=== PATIENT | female | born 1930 | race Caucasian/White ===

== ENCOUNTER 2016-10-27 10:58 | Outpatient (CLI) | payer MEDICARE, OTHER ==
[2015-05-10 22:43] VITALS: BP 207/80
== END 2016-10-27 11:00 ==
LOC: LAB 10:58
PROVIDERS: ATTEND Family Medicine
DX: E11.9 Type 2 diabetes mellitus without complications (principal)
CPT/HCPCS: 36415; 83036

== ENCOUNTER 2017-02-02 14:18 | Outpatient (CLI) | payer MEDICARE, OTHER ==
[2015-05-10 22:43] VITALS: BP 207/80
== END 2017-02-02 14:20 ==
LOC: LAB 14:18
PROVIDERS: ATTEND Family Medicine
DX: E11.9 Type 2 diabetes mellitus without complications (principal)
CPT/HCPCS: 36415; 82043; 83036

== ENCOUNTER 2017-05-05 13:42 | Outpatient (CLI) | payer MEDICARE, OTHER ==
[2015-05-10 22:43] VITALS: BP 207/80
[2017-05-05 14:32] LABS: eGFR (African) > 60; eGFR (Non-African) > 60
== END 2017-05-05 13:43 ==
LOC: LAB 13:42
PROVIDERS: ATTEND Family Medicine
DX: E11.9 Type 2 diabetes mellitus without complications (principal)
CPT/HCPCS: 36415; 80053; 80061; 83036

== ENCOUNTER 2017-08-19 14:40 | Outpatient (CLI) | payer MEDICARE, OTHER ==
[2015-05-10 22:43] VITALS: BP 207/80
== END 2017-08-19 14:42 ==
LOC: LAB 14:40
PROVIDERS: ATTEND Family Medicine
DX: E11.9 Type 2 diabetes mellitus without complications (principal)
CPT/HCPCS: 36415; 83036

== ENCOUNTER 2017-11-09 10:47 | Outpatient (CLI) | payer MEDICARE, OTHER ==
[2015-05-10 22:43] VITALS: BP 207/80
== END 2017-11-09 10:50 ==
LOC: LABRHC 10:47
PROVIDERS: ATTEND Physician Assistant
DX: R30.0 Dysuria (principal)
CPT/HCPCS: 87086

== ENCOUNTER 2017-12-18 17:02 | Outpatient (CLI) | payer MEDICARE, OTHER ==
[2015-05-10 22:43] VITALS: BP 207/80
== END 2017-12-18 17:05 ==
LOC: LABRHC 17:02
PROVIDERS: ATTEND Physician Assistant
DX: R30.0 Dysuria (principal)
CPT/HCPCS: 87086

== ENCOUNTER 2017-12-28 07:02 | Emergency (ER) | payer MEDICARE, OTHER ==
--- NOTE | 2017-12-28 07:16 | ED Physician Documentation ---
Female Urogenital Problems - HISTORIAN Historian: patient - HPI Stated Complaint: vaginal itching Chief Complaint: Female Urogenital Problems Onset: days ago (1) Severity: mild Location of Pain: other (vaginal itching and burning with urination ) Further Comments: yes (She states over the last month she has had 2 UTI's and antibitotic treatment. She states she stopped the last antibiotic on the 12 of this month. She states yesterday she started itching and frequency. She denies any fever or nausea . No other complaints. She does not check her blood sugars at home.) - Associated Symptoms Urinary Symptoms: frequent urination, discomfort w/ urination, burning w/ urination, urgency w/ urination. denies: blood in urine Discharge: denies: vaginal discharge, vaginal fluid leakage, odorous discharge - ROS CONST: recent illness (UTI ) GI/: denies: nausea, vomiting CVS/RESP: none EYES/ENT: none NEURO/PSYCH: none MS/SKIN/LYMPH: none - PAST HX Past History: other (UTI x 2 ) Other History: diabetes Type 2, hypertension Immunizations: UTD Allergies/Adverse Reactions: Allergies Allergy/AdvReac Type Severity Reaction Status Date / Time levofloxacin AdvReac Mild No Reaction Verified 12/28/17 07:29 tramadol AdvReac Nausea/Vomi Verified 12/28/17 07:29 ting - SOCIAL HX Smoking History: non-smoker Alcohol Use: none Drug Use: none - FAMILY HX Family History: none - VITAL SIGNS Vital Signs: Vital Signs Temp Pulse Resp BP Pulse Ox 207/80 05/10/15 21:30 - REVIEWED ASSESSMENTS Nursing Assessment Reviewed: Yes Vitals Reviewed: Yes Female Urogenital Problems - EXAM General Appearance: no acute distress, alert EENT: eye inspection normal Neck: nml inspection Respiratory: no resp. distress, breath sounds nml CVS: reg rate & rhythm, heart sounds normal, equal pulses Abdomen: soft, non-tender, no organomegaly, no distention Back: non-tender Skin: color nml, no rash, warm,dry Extremities: non-tender, normal range of motion, no evidence of injury, no edema Neuro: oriented X3, CN's nml as tested, motor nml, sensation nml, mood/affect nml, cognition normal Discharge Clincal Impression: Diabetes type 2, uncontrolled Qualifiers: Diabetes mellitus complication status: with hyperglycemia Diabetes mellitus senior living insulin use: without senior living use Qualified Code(s): E11.65 - Type 2 diabetes mellitus with hyperglycemia Referrals: Rakel Bee MD [Primary Care Provider] - 2 Days Additional Instructions: 1. Increase Januvia to 100 mg daily (until Dr Bee appt) 2. Check blood sugars fasting (before eating in morning) and afternoon or if feeling bad 3. Increase fluids 4. Follow up with PCP as soon as possible 5. Diflucan 150 mg today and repeat in 3 days (2 more tabs if needed prior to PCP appt) 6. Return to ER for increasing concerns Condition: Stable Disposition: 01 HOME, SELF-CARE Decision to Admit: NO Date of Decison to Admit: 12/28/17 Decision Time: 07:45
[2017-12-28] MEDS ORDERED: INSULIN REGULAR, HUMAN 100 UNIT/ML 3ML VIAL SQ ONE (07:28)
[2017-12-28 08:15] LABS: APPEARANCE,URINE CLOUDY (CLEAR); COLOR,URINE YELLOW (YELLOW); OCCULT BLOOD,URINE TRACE-INTACT (NEGATIVE); PH URINE 5.5 (5.0 - 8.0); UROBILINOGEN URINE 0.2 Eu (0.2-1.0)
[2017-12-28 08:16] LABS: YEAST,URINE FEW (NEGATIVE)
[2017-12-28 08:18] VITALS: BP 167/84
== END 2017-12-28 07:56 | disposition home or self-care (01) ==
LOC: ED 07:02
DX: E11.65 Type 2 diabetes mellitus with hyperglycemia (principal)
CPT/HCPCS: 81002; J1815; 96372; 99283

== ENCOUNTER 2018-01-07 16:14 | Outpatient (CLI) | payer MEDICARE, OTHER ==
[2018-01-07 16:35] LABS: MEAN CORPUSCULAR HEMOGLOBIN 23.8 pg (28.0-34.0); MEAN CORPUSCULAR VOLUME 81.8 fl (80.0-100.0)
[2018-01-07 16:58] LABS: eGFR (African) > 60; eGFR (Non-African) > 60
== END 2018-01-07 16:15 ==
LOC: LAB 16:14
PROVIDERS: ATTEND Family Medicine
DX: R10.84 Generalized abdominal pain (principal); E11.9 Type 2 diabetes mellitus without complications
CPT/HCPCS: 36415; 80053; 83036; 85027

== ENCOUNTER 2018-01-08 09:56 | Outpatient (CLI) | payer MEDICARE, OTHER ==
--- NOTE | 2018-01-08 19:02 | Diagnostic Imaging Report ---
UZMA JARRETT [facility] [address] [facility] [address] [place], [place]. [address] Report Submission Date: Jan 08, 2018 11:17:29 AM CDT Patient Study Name: BEST CLIFFORD Date: Jan 08, 2018 10:25:23 AM CDT Modality Type: CT\SR Gender: F Description: CT ABD PELVIS W/ CON : 32 Institution: [facility] Physician: UZMA JARRETT Examination: CT Abdomen/pelvis History: CT A/P W/ CONTRAST, ABD PAIN, HYPERGLYCEMIA, WEIGHT LOSS FOR ABOUT 6 MONTHS (Hx) Comparison exams: None available Technique: CT Abdomen/pelvis with IV protocol. Findings: Liver demonstrates mild diffuse low attenuation. No central lesion. Spleen, adrenals, pancreas, kidneys and gallbladder are without gross irregularity. No abnormal enhancement. No gallstone. No suspicious renal calcifications. Ureters are nondilated in their course through the abdomen and pelvis. No central calcifications. Abdominal aorta demonstrates peripheral atherosclerotic disease. No aneurysm. Cardiac silhouette is not enlarged. No pericardial effusion. Dilated/prominent loops of mid abdominal small bowel associated with mucosal thickening and air-fluid levels. Stool within the large bowel limiting sensitivity. No mesenteric inflammatory changes or free fluid. Appendix not visualized. Osseous structures demonstrate degenerative changes. Lung bases demonstrate interstitial prominence. Posterior scarring and atelectasis. No posterior fusion. Left lower lung granuloma. Impression: Prominent small bowel with mucosal thickening and air-fluid levels suggesting diffuse gastroenteritis/acute small bowel process. No overt obstruction. No acute upper abdominal organ inflammatory process. Fatty liver. No gallstone. No suspicious renal calcification or abnormal ureteric dilation. Lung base scarring and interstitial prominence - possible mild congestive edema. No effusion. Electronically signed on Jan 08, 2018 11:17:29 AM CDT by: Oseas MILLER
== END 2018-01-08 09:58 ==
LOC: RAD 09:56
PROVIDERS: ATTEND Family Medicine
DX: R10.84 Generalized abdominal pain (principal); R63.0 Anorexia; R73.9 Hyperglycemia, unspecified
CPT/HCPCS: 74177; Q9967

== ENCOUNTER 2018-03-02 11:54 | Outpatient (CLI) | payer MEDICARE, OTHER ==
[2018-03-02 13:13] LABS: eGFR (African) > 60; eGFR (Non-African) > 60
[2018-03-02 13:14] LABS: BASOPHILS % 0.8 (0.0-1.5); MEAN CORPUSCULAR HEMOGLOBIN 24.7 pg (28.0-34.0); MEAN CORPUSCULAR VOLUME 86.2 fl (80.0-100.0); MONOCYTES % 5.2 % (0.0-11.0); NEUTROPHILS # 2.4 # k/uL (1.4-7.7)
[2018-03-02 22:11] LABS: SERUM IRON 92 ug/dL (37-145)
== END 2018-03-02 11:55 ==
LOC: LAB 11:54
PROVIDERS: ATTEND Family Medicine
DX: D50.9 Iron deficiency anemia, unspecified (principal); I50.31 Acute diastolic (congestive) heart failure
CPT/HCPCS: 36415; 80048; 82728; 83540; 83550; 85025

== ENCOUNTER 2018-03-15 10:49 | Day surgery (SDC) | payer MEDICARE, OTHER ==
[~2018-03-15 10:49] MED LIST: LACTATED RINGERS 1,000 ML IV.SOLN IV ONE; LIDOCAINE HCL/PF 2% 100 MG/5 ML VIAL IJ ONE; PROPOFOL 200 MG/20 ML VIAL IV ONE
--- NOTE | 2018-03-19 10:11 | GI Report ---
REFERRING PHYSICIAN: Dr. Rakel Bee CALL OR CONTACT CENTRE TEAM LEADER: Chivo Brown MD PROCEDURE MEDICATION: Propofol as per anesthesia. INDICATIONS: An 87-year-old woman who was apparently recently at [facility] with severe shortness of breath. She was found to be markedly anemic and low iron. She did receive 2 units of blood transfusions and apparently an iron infusion. She has not noted blood in her stools. She has never had her stomach or colon looked at before. 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 She apparently has vascular disease and carotid stenosis in the past and an intracerebral hemorrhage in the past. She is on aspirin. No other anticoagulation. She denies abdominal pain or discomfort or obvious change in bowel habits. PROCEDURE PERFORMED: Endoscopy followed by a colonoscopy. PROCEDURE: An Olympus video endoscope is passed through the esophagus under direct visualization. She has maybe grade A or grade 1 esophagitis at the GE junction. The stomach is entered. She does have diffuse gastritis though, atrophic gastritis. You just touch the wall or when we took a biopsy, it bled freely. No specific lesion otherwise. Duodenal bulb, first and second part of the duodenum, and the villi structures looked normal. The patient tolerated the procedure well. FINDINGS: Atrophic gastritis. It bleeds freely with biopsies. RECOMMENDATIONS: 1. Would follow up biopsy results. 2. We will put her on a PPI like Prilosec or Omeprazole 20 mg before her first meal daily. 3. Avoid any other nonsteroidal's outside of her baby aspirin. cc: Dr. Rakel MILLER
--- NOTE | 2018-03-19 10:17 | GI Report ---
REFERRING PHYSICIAN: Dr. Rakel Bee DENIER CONTROL OPERATOR: Chivo Brown MD PROCEDURE MEDICATION: Propofol as per anesthesia. INDICATIONS: 1. Significant anemia; 2. Iron deficiency. 3. She has never had a colonoscopy. PROCEDURE PERFORMED: Colonoscopy. PROCEDURE: An Olympus video colonoscope was advanced to the rectum and slowly advanced all the way to the cecum. The appendiceal orifice and ileocecal valve looked normal. On slow withdrawal, the colon has a little nonspecific friability but there is no granularity. No ulceration. No obvious polyps, tumors, or bleeding sites. I did not see any AV malformations in the cecum. The prep was fair. We did lavage a couple of areas but where we lavaged, including the base of the cecum, we saw no AV malformations or any other obvious bleeding sites. On retroflexion of the rectum, she was hemorrhoids. Patient tolerated the procedure well. FINDINGS: 1. An atonic redundant. 2. Nonspecific friability but no obvious bleeding site noted. RECOMMENDATIONS: 1. Continue her prior medicines and diet. 2. If bleeding persists, a capsule endoscopy might be a consideration pending the biopsy results from the upper endoscopy. cc: Dr. Rakel MILLER
== END 2018-03-15 10:50 ==
LOC: OPSURG 10:49
PROVIDERS: ATTEND Internal Medicine Gastroenterology
DX: Z12.11 Encounter for screening for malignant neoplasm of colon (principal); D50.9 Iron deficiency anemia, unspecified; K31.89 Other diseases of stomach and duodenum; K29.41 Chronic atrophic gastritis with bleeding
CPT/HCPCS: 88304; J2001; J2704; J7120; 43239; G0121; S1016

== ENCOUNTER 2018-05-03 15:15 | Outpatient (CLI) | payer MEDICARE, OTHER ==
[2018-05-03 15:54] LABS: eGFR (African) > 60; eGFR (Non-African) > 60
[2018-05-03 16:20] LABS: BASOPHILS % 0.6 (0.0-1.5); MEAN CORPUSCULAR VOLUME 87.3 fl (80.0-100.0); NEUTROPHILS # 2.2 # k/uL (1.4-7.7)
== END 2018-05-03 15:17 ==
LOC: LAB 15:15
PROVIDERS: ATTEND Family Medicine
DX: E11.9 Type 2 diabetes mellitus without complications (principal); D50.0 Iron deficiency anemia secondary to blood loss (chronic); I10 Essential (primary) hypertension
CPT/HCPCS: 36415; 80048; 83036; 85025

== ENCOUNTER 2018-08-03 16:16 | Outpatient (CLI) | payer MEDICARE, OTHER ==
[2018-08-03 16:40] LABS: MEAN CORPUSCULAR HEMOGLOBIN 29.8 pg (28.0-34.0)
[2018-08-03 16:50] LABS: eGFR (Non-African) > 60
== END 2018-08-03 16:17 ==
LOC: LAB 16:16
PROVIDERS: ATTEND Family Medicine
DX: E11.9 Type 2 diabetes mellitus without complications (principal); Z86.2 Personal history of diseases of the blood and blood-forming organs and certain disorders involving the immune mechanism
CPT/HCPCS: 36415; 80053; 80061; 83036; 85027

== ENCOUNTER 2019-05-05 15:00 | Outpatient (CLI) | payer MEDICARE, OTHER | END 2019-05-05 15:10 | LOC: LAB 15:00 | PROVIDERS: ATTEND Family Medicine | DX: E11.9 Type 2 diabetes mellitus without complications (principal) | CPT/HCPCS: 36415; 83036 ==

== ENCOUNTER 2019-06-22 22:20 | Emergency (ER) | payer MEDICARE, OTHER ==
[2019-05-08 12:35] VITALS: BP 198/81
[2019-06-22] MEDS ORDERED: hydrALAZINE HCL 25 MG TABLET PO ONE (22:45)
[2019-06-22] MEDS ORDERED: METOPROLOL TARTRATE 50 MG TABLET ONE (22:45)
[2019-06-22] MEDS ORDERED: ACETAMINOPHEN 325 MG TABLET ONE (22:45)
--- NOTE | 2019-07-15 15:13 | Diagnostic Imaging Report ---
BRODY BURCIAGA [facility] [address] [facility] [address] [address] Report Submission Date: Jun 22, 2019 8:51:00 PM CDT Patient Study Name: DAQUAN TERRELL Date: Jun 22, 2019 8:13:00 PM CDT Modality Type: CT\SR Gender: M Description: CT BRAIN W/O : [birth year] Institution: [facility] Physician: BRODY BURCIAGA CT head without contrast HISTORY Fall, loss of consciousness TECHNIQUE Images through the brain were obtained without contrast. FINDINGS No mass, midline shift, hydrocephalus or hemorrhage is present. The ventricles are normal. No extra-axial fluid collection is identified. IMPRESSION No acute intracranial process. Electronically signed on Jun 22, 2019 8:51:00 PM CDT by: Ta MILLER
--- NOTE | 2019-07-15 15:41 | Diagnostic Imaging Report ---
BRODY BEGUM [facility] [address] [facility] [address] Report Submission Date: Jun 22, 2019 10:58:22 PM CDT Patient Study Name: BEST CLIFFORD Date: Jun 22, 2019 10:32:33 PM CDT Modality Type: CT\SR Gender: F Description: HEAD W/O : 32 Institution: [facility] Physician: BRODY BURCIAGA EXAMINATION: HEAD W/O HISTORY: fall, pt states hx of stroke several years ago (Hx) / Note time : 06/22/2019 10:49:39 PM User : Isabella Robison fall, pt states hx of stroke several years ago (DICOM Hx) (DICOM Hx) TECHNIQUE: CT of the head was performed without contrast according to standard protocol. COMPARISON: None FINDINGS: No acute intra- or extra-axial fluid collections are identified. The ventricles are non-dilated. The basilar cisterns are patent. No mass effect or midline shift is seen. The hernandez-white matter differentiation is normal. Periventricular white matter hypoattenuation likely represents sequelae of chronic small vessel disease. There is vascular calcification of the carotid siphons. Other than bilateral cataract extractions, the visible portions of the orbits, paranasal sinuses, and mastoids appear normal. No acute fracture is identified. There is left parietal scalp hematoma. IMPRESSION: 1. No acute intracranial process. Electronically signed on Jun 22, 2019 10:58:22 PM CDT by: Kedar MILLER
--- NOTE | 2019-07-15 15:44 | Diagnostic Imaging Report ---
BRODY BURCIAGA [facility] [address] [address] Report Submission Date: Jun 22, 2019 11:01:33 PM CDT Patient Study Name: BEST CLIFFORD Date: Jun 22, 2019 10:34:26 PM CDT Modality Type: CT\SR Gender: F Description: ANATOLIY : 34 Institution: [facility] Physician: BRODY BURCIAGA EXAMINATION: ANATOLIY HISTORY: fall (Hx) / Note time : 06/22/2019 10:49:55 PM User : Isabella Robison fall (DICOM Hx) (DICOM Hx) TECHNIQUE: CT of the cervical spine was performed without contrast according to standard protocol. COMPARISON: None FINDINGS: There is anterolisthesis at C4-5. Vertebral bodies are normal in height without evidence of acute fracture. 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 There is advanced degenerative disc disease. There is moderate lower cervical degenerative disc disease. There are varying degrees of advanced facet osteoarthritis. There are varying degrees of advanced uncovertebral joint osteoarthritis resulting in the same degrees of neural foraminal stenosis at these levels. The carotid bifurcations are atherosclerotic. The lung apices are emphysematous with biapicall pleural-parenchymal scarring. IMPRESSION: 1. No evidence of acute fracture in the cervical spine. Electronically signed on Jun 22, 2019 11:01:33 PM CDT by: Kedar MILLER
--- NOTE | 2019-07-15 15:46 | Diagnostic Imaging Report ---
BRODY BURCIAGA [facility] [address] [address] Report Submission Date: Jun 22, 2019 11:03:00 PM CDT Patient Study Name: BEST CLIFFORD Date: Jun 22, 2019 10:38:09 PM CDT Modality Type: CT\SR Gender: F Description: SINAN : 32 Institution: [facility] Physician: BRODY BURCIAGA EXAMINATION: SINAN HISTORY: fall, LBP (Hx) / Note time : 06/22/2019 10:50:03 PM User : Isabella Robison fall (DICOM Hx) (DICOM Hx) TECHNIQUE: CT of the lumbar spine was performed without contrast according to standard protocol. COMPARISON: None FINDINGS: There is grade I anterolisthesis at L4/L5. Vertebral bodies are normal in height without evidence of acute fracture. There is mild degenerative disc disease. No spinal canal stenosis is seen. There is lower lumbar facet osteoarthritis. No neural foraminal stenosis is seen. The aorta is atherosclerotic. IMPRESSION: 1. No evidence of acute fracture in the lumbar spine. Electronically signed on Jun 22, 2019 11:03:00 PM CDT by: Kedar MILLER
== END 2019-06-22 23:07 ==
LOC: ED 22:20
DX: S00.03XA Contusion of scalp, initial encounter (principal); W01.0XXA Fall on same level from slipping, tripping and stumbling without subsequent striking against object, initial encounter
CPT/HCPCS: 70450; 72125; 72131; 99283

== ENCOUNTER 2019-06-29 15:18 | Outpatient (CLI) | payer MEDICARE, OTHER ==
[2019-05-08 12:35] VITALS: BP 198/81
[2019-06-29 16:13] LABS: BASOPHILS % 0.6 % (0.0-1.5); NEUTROPHILS # 3.6 # k/uL (1.4-7.7)
[2019-06-29 16:57] LABS: eGFR (Non-African) > 60
== END 2019-06-29 15:23 | disposition home or self-care (01) ==
LOC: LAB 15:18
PROVIDERS: ATTEND Family Medicine
DX: E55.9 Vitamin D deficiency, unspecified (principal); R41.3 Other amnesia
CPT/HCPCS: 36415; 80053; 82306; 82607; 82652; 84443; 85025

== ENCOUNTER 2019-09-01 16:01 | Outpatient (CLI) | payer MEDICARE, OTHER ==
[2019-05-08 12:35] VITALS: BP 198/81
[2019-09-01 16:33] LABS: A1C 6.6 % (<5.7)
[2019-09-01 17:33] LABS: TSH 2.18 mIU/l (0.465-4.685)
== END 2019-09-01 16:06 ==
LOC: LAB 16:01
PROVIDERS: ATTEND Family Medicine
DX: E03.9 Hypothyroidism, unspecified (principal); E11.9 Type 2 diabetes mellitus without complications
CPT/HCPCS: 36415; 83036; 84443